=== PATIENT | male | born 1980 | race Caucasian/White ===

== ENCOUNTER 2021-03-15 14:17 | Emergency (ER) | payer MEDICAID ==
[~2021-03-15] VITALS: Ht 182.9 cm; Wt 81.8 kg
[2021-03-15 14:49] VITALS: BP 125/77
== END 2021-03-15 16:41 | disposition home or self-care (01) ==
LOC: ER 14:18
DX: R43.0 Anosmia (principal); Z20.822 Contact with and (suspected) exposure to COVID-19; R50.9 Fever, unspecified; F15.90 Other stimulant use, unspecified, uncomplicated
CPT/HCPCS: 87635; 99283; C9803

== ENCOUNTER 2023-06-21 08:04 | Day surgery (SDC) | payer MEDICAID ==
[~2023-06-21] VITALS: Ht 182.9 cm; Wt 95.0 kg
[2023-06-21] MEDS ORDERED: NO HOME MEDS (08:16)
[2023-06-21 08:24] VITALS: BP 139/89; PULSE 56; RESP 22
[2023-06-21] MEDS ORDERED: diphenhydrAMINE 50 mg/ml inj ONE (09:20)
[2023-06-21] MEDS ORDERED: fentaNYL/PF 50MCG/1 ML 2ML syringe ONE (09:20)
[2023-06-21] MEDS ORDERED: MIDAZolam 1 MG/ML 5ML VIAL ONE (09:20)
[2023-06-21 09:54] VITALS: BP 114/65; PULSE 59; RESP 16; O2SAT 96
[2023-06-21 10:04] VITALS: BP 112/57; PULSE 50; RESP 16; O2SAT 98
[2023-06-21 10:14] VITALS: BP 109/64; PULSE 53; RESP 12; O2SAT 96
[2023-06-21 10:24] VITALS: BP 110/66; PULSE 59; RESP 16; O2SAT 97
== END 2023-06-21 10:41 | disposition home or self-care (01) ==
LOC: GI LAB 08:04
PROVIDERS: ATTEND Internal Medicine Gastroenterology
DX: D12.2 Benign neoplasm of ascending colon (principal); K92.1 Melena; R19.7 Diarrhea, unspecified
CPT/HCPCS: 45380; 99152; J1200; J2250; J3010; J7030; Z7512; 99153; A4620

== ENCOUNTER 2024-12-09 12:43 | Emergency (ER) | payer MEDICAID ==
[~2024-12-09] VITALS: Ht 182.9 cm; Wt 91.6 kg
[~2024-12-09 12:43] MED LIST: NO HOME MEDS
--- NOTE | 2024-12-09 12:57 | Physician Documentation ---
History of Present Illness ~ Chief Complaint: Laceration Stated Complaint: FINGER LAC Time Seen by MD: 12:53 HPI 44-year-old male presents to the ED with a complaint of the laceration on his left index finger. 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 Bleeding is currently controlled. Medication Reconciliation Allergies: Coded Allergies: cephalexin (Unverified Allergy, Unknown, 06/21/23) Uncoded Allergies: pcn (Allergy, Unknown, 06/21/23) Scheduled Doxycycline Monohydrate (Doxycycline Monohydrate), 1 CAP PO Q12H Miscellaneous Medications Home Med List (No Home Medications), (Reported) Past Medical History Past Medical History: No Pertinent History Past Surgical History: noncontributory Drug Use: methamphetamine Lives with: Spouse Lives In: Home Review of Systems All Other Systems at this time: Reviewed and Negative ROS As stated above in the HPI, otherwise all systems are reviewed and negative. Physical Exam Vital Signs: Temperature: 97.8, Source: Temporal, Heart Rate: 68, Respiratory Rate: 18, BP: 120/93, Pulse Oximetry: 96, Weight: 91.560 Physical Exam General: Alert, no apparent distress. Extremities: Normal range of motion, no deformity. 2.5 cm laceration on the posterior aspect of the left index finger bleeding is controlled Neurologic: Oriented x4. Psychiatric: Normal mood and affect. Skin: Normal color, warm and dry. No edema, no ecchymosis. Procedures Laceration/Wound Repair Laceration : Anesthesia: Lidocaine Margins: revised Wound Repaired With: sutures Suture Size/Type: 4-0 Number of Superficial Sutures: 9 Tolerated Procedure Well?: yes, no complications Progress Results/Orders Results/Orders Orders - NAKUL GRIFFIN NP Laceration/I&D Tray Set Up (12/09/24 ) Completed Orders - NAKUL GRIFFIN CONTROL BOARD OPERATOR Lidocaine 1% 30ml Vial (Xylocaine 1% Via (12/09/24 12:57) Vital Signs 12/09/24 12/09/24 12/09/24 12/09/24 12:48 13:40 13:46 14:53 Temp 97.8 98.3 Pulse 68 67 60 Resp 18 20 14 B/P (MAP) 120/93 128/88 (101) 123/86 (98) Pulse Ox 96 99 99 O2 Flow Rate 0 0 Medical Decision Making Additional info obtained from: other Findings Laceration was revised without difficulty. Will place patient on antibiotics based on the location of the laceration. Follow up with his primary care or return here to have the sutures removed in 7-10 day Differential Dx:Considerations: Include: Abrasion, Avulsion, Contusion, Laceration, Fracture, Hematoma, Neurovascular injury, Retained foreign body, Other Departure Disposition: HOME / SELF CARE / HOMELESS Impression: Primary Impression: Laceration Condition: Improved Discharge Instructions: Laceration Care, Adult, [id number] Additional Instructions: Sutures removed in 7-10 days take medication as prescribed Referrals: NO PRIMARY CARE PROVIDER (PCP) Prescriptions Doxycycline Monohydrate (Doxycycline Monohydrate) 100 Mg Capsule 1 CAP PO Q12H for 10 Days, #20 CAP Prov: NAKUL GRIFFIN NP 12/09/24 Signature Scribe Signature: b Attestation: Scribed for Nakul Griffin Manager Of Program by Nakul Simms NP . 12/09/24 14:11 NAKUL GRIFFIN NP Dec 09, 2024 12:57
[2024-12-09] MEDS: LIDOcaine 1% 30ml preserv. free vial SQ STA (13:12)
[2024-12-09 13:46] VITALS: BP 123/86; PULSE 60; RESP 14; O2SAT 99
[2024-12-09] MEDS ORDERED: DOXY-460 PO (14:12)
[2024-12-09 14:53] VITALS: TEMP 98.3
== END 2024-12-09 14:54 | disposition home or self-care (01) ==
LOC: ER 12:44
DX: S61.211A Laceration without foreign body of left index finger without damage to nail, initial encounter (principal); F15.90 Other stimulant use, unspecified, uncomplicated; Z88.1 Allergy status to other antibiotic agents; W26.8XXA Contact with other sharp object(s), not elsewhere classified, initial encounter; Y93.89 Activity, other specified; Y92.89 Other specified places as the place of occurrence of the external cause; Y99.8 Other external cause status
CPT/HCPCS: 12001; 99283

== ENCOUNTER 2024-12-18 13:03 | Emergency (ER) | payer MEDICAID ==
[~2024-12-18] VITALS: Ht 182.9 cm; Wt 90.7 kg
[~2024-12-18 13:03] MED LIST changes: +DOXY-460 PO
[2024-12-18 13:12] VITALS: BP 128/87; PULSE 69; RESP 18; TEMP 97.8; O2SAT 99
--- NOTE | 2024-12-18 14:49 | Physician Documentation ---
History of Present Illness ~ Chief Complaint: Suture Removal Stated Complaint: SUTURE REMOVAL Time Seen by MD: 13:33 HPI This is a 44-year-old male who presents for requesting suture removal of he sutured laceration to his left 2nd finger. Patient reports no concerns or comp lications including no fever, swelling, or discharge from the wound. Tetanus Within 5 Years: Yes Medication Reconciliation Allergies: Coded Allergies: Penicillins (Verified Allergy, Unknown, 12/18/24) cephalexin (Unverified Allergy, Unknown, 12/18/24) Uncoded Allergies: pcn (Allergy, Unknown, 06/21/23) Scheduled Doxycycline Monohydrate (Doxycycline Monohydrate), 1 CAP PO Q12H Miscellaneous Medications Home Med List (No Home Medications), (Reported) Past Medical History Past Medical History: No Pertinent History Past Surgical History: noncontributory Drug Use: methamphetamine Lives with: Spouse Lives In: Home Review of Systems ROS As stated above in the HPI, otherwise all systems are reviewed and negative. Physical Exam Vital Signs: Temperature: 97.8, Source: Temporal, Heart Rate: 69, Respiratory Rate: 18, BP: 128/87, Pulse Oximetry: 99, Weight: 90.700 Physical Exam VITALS: Reviewed and as above. GENERAL: Alert, nontoxic appearing, no apparent distress. RESPIRATORY: No increased work of breathing, no respiratory distress, speaking in full clear sentences SKIN: Well-healing sutured laceration to the dorsal aspect of left 2nd finger, no erythema, no swelling no evidence of wound dehiscence Procedure Suture/Staple Removal : Location: hand Removed without Complications: Yes # of Sutures/[place] Removed: 8 Steri-Strips applied?: No Delayed Suture/Staple Removal: No Tolerated Procedure Well?: yes, no complications Procedure Note Sutures removed by RN Progress Results/Orders Results/Orders Orders - EDIE ARMAS CUT TO LENGTH OPERATOR General Nursing Order (12/18/24 14:49) Vital Signs 12/18/24 13:12 Temp 97.8 Pulse 69 Resp 18 B/P (MAP) 128/87 Pulse Ox 99 Medical Decision Making Additional information obtaine: N/A Findings This 44-year-old male presented requesting removal of sutures from dorsal aspect of left 2nd finger physical exam of the area demonstrated a well healing sutured wound without evidence of complication, wound is appropriate for suture removal. Patient provided home care instructions return to care instructions, and follow up instructions which he verbalized understanding of. Differential Dx:Considerations: Include: Cellulitis, Suture removal, Wound dehiscence Departure Time of Disposition: 14:48 Disposition: 01 HOME / SELF CARE / HOMELESS Impression: Primary Impression: Visit for suture removal Condition: Improved Discharge Instructions: Suture Removal, Care After Additional Instructions: Keep the area clean and dry, you may wash it gently, be gentle with the area until the wound is fully healed. Please follow up with your primary care provider in the next few days. Please return to the emergency department for any new or worsening concerning symptoms. Referrals: NO PRIMARY CARE PROVIDER (PCP) Education Educated: Patient Educated regarding: diagnosis, treatment, prognosis, need for follow up Signature Scribe Signature: No scribe Attestation: The note accurately reflects work and decisions made by me.DANNY Cha 12/18/24 21:04 EDIE ARMAS Dec 18, 2024 14:49
== END 2024-12-18 14:59 | disposition home or self-care (01) ==
LOC: ER 13:03
DX: S61.211D Laceration without foreign body of left index finger without damage to nail, subsequent encounter (principal); F15.90 Other stimulant use, unspecified, uncomplicated; Z88.0 Allergy status to penicillin; Z88.1 Allergy status to other antibiotic agents; X58.XXXD Exposure to other specified factors, subsequent encounter
CPT/HCPCS: 99282